=== PATIENT | female | born 1945 | race Two or more races ===

== ENCOUNTER 2022-06-16 06:17 | Inpatient (IN) | payer OTHER ==
[~2022-06-16] VITALS: Ht 162.6 cm; Wt 52.2 kg
[2022-06-16] MEDS ORDERED: OMEPRAZOLE MAGN20 MG (06:34)
[2022-06-16] MEDS ORDERED: HORIZANT300 MG (06:34)
[2022-06-16] MEDS ORDERED: SIMVASTATIN5 MG (06:34)
[2022-06-16] MEDS ORDERED: COZAAR100 MG (06:34)
--- NOTE | 2022-06-16 06:41 | NUR ---
SE RECIBE PTE ALERTA Y ORIENTADA X3 LA CUAL REFIERE VENIR POR DOLOR ABDOMINAL Y ANAL, PTE REFIERE TENER LONA FISTULA. PTE REFIERE IBETH REBAJADO ALREDEDOR DE 30 LIBRAS EN 1 MES. SE MIDEN S/V A PTE. PTE SE COLOCA EN DIANE DE ESPERA.
--- NOTE | 2022-06-16 08:18 | NUR ---
SE ORIENTA PTE SOBRE TX A SEGUIR, EL CUAL REFIERE ENTENDER. SE COLECTAN MUESTRAS Y SE CANALIZA PTE UTILIZANDO MEDIDAS ASEPTICAS. SE ADM. MEDICAMENTOS ROCHELLE ORDEN MEDICA. SE REALIZA EKG Y SE LE PRESENTA A DR. WALKER.
[2022-06-22] MEDS ORDERED: OXYCONTIN10 M1 PO (10:05)
[2022-06-22] MEDS ORDERED: NEURONTIN300 MG PO (10:14)
[2022-06-22] MEDS ORDERED: PERCOCET 5-3251 EACH PO (10:14)
== END 2022-06-22 14:39 | disposition home or self-care (01) | DRG 330 ==
LOC: ER 06:17 → SURH 13:51 → SEC-K 13:51 → SURH 14:15
PROVIDERS: ADMIT Surgery; ATTEND Surgery
PROC: 0D1L0Z4 Bypass Transverse Colon to Cutaneous, Open Approach (ICD-10-PCS; principal; 2022-06-20 18:15)
DX: N82.3 Fistula of vagina to large intestine (principal); J44.1 Chronic obstructive pulmonary disease with (acute) exacerbation; N39.0 Urinary tract infection, site not specified; I10 Essential (primary) hypertension; G62.89 Other specified polyneuropathies; F17.200 Nicotine dependence, unspecified, uncomplicated; Z20.822 Contact with and (suspected) exposure to COVID-19; Z93.3 Colostomy status

== ENCOUNTER 2022-06-26 15:48 | Emergency (ER) | payer OTHER ==
[~2022-06-26] VITALS: Ht 170.2 cm; Wt 56.7 kg
[~2022-06-26 15:48] MED LIST: COZAAR100 MG; HORIZANT300 MG; NEURONTIN300 MG PO; OMEPRAZOLE MAGN20 MG; OXYCONTIN10 M1 PO; PERCOCET 5-3251 EACH PO; SIMVASTATIN5 MG
== END 2022-06-26 16:37 | disposition home or self-care (01) ==
LOC: ER 15:48
DX: N82.3 Fistula of vagina to large intestine (principal); Z87.42 Personal history of other diseases of the female genital tract; Z93.3 Colostomy status; I10 Essential (primary) hypertension; Z87.09 Personal history of other diseases of the respiratory system